=== PATIENT | male | born 2000 | race Two or more races ===

== ENCOUNTER 2024-04-13 22:45 | Emergency (ER) | payer MEDICAID, SELFPAY ==
[2024-04-13 23:22] VITALS: BMI 23.3
[2024-04-13 23:23] VITALS: BP 166/54; PULSE 103; RESP 18; TEMP 36.8; O2SAT 95
--- NOTE | 2024-04-13 23:32 | XR_ITS ---
Examination: Hand, right 2 views Technique: Hand AP, lateral 2 views Date and time of exam: April 13, 2024 11:33 PM Indications: Injury to the hand today, hand pain Findings: Severe osteopenia No acute fracture No dislocation Impression: No acute fracture Given the severe osteopenia, suggest short-term follow-up as clinically warranted
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
[2024-04-14] MEDS: IBUPROFEN TAB 400 MG TABLET 800 MG PO (00:35)
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
--- NOTE | 2024-04-14 00:35 | XR_ITS ---
Examination: Right hand 2 views Technique one AP lateral right hand 2 views Exam date and time: April 14, 2024 0119 hrs. Indications: Injury to the hand today, hand pain Findings: Severe osteopenia The fingers are not spread on the lateral view No gross fracture Impression: Limited study No gross fracture Repeat this study short-term as clinically warranted
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
[2024-04-14 01:29] VITALS: BP 137/78; PULSE 89; RESP 16; TEMP 37; O2SAT 98
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
--- NOTE | 2024-04-14 01:39 | PRELIM_ITS ---
CT scan of the chest, abdomen and pelvis without intravenous contrast (axial sections with sagittal a nd coronal reformats) April 14, 2024 0058 hoursClinical History: TraumaNo prior study is available for comparison. Findings:The lungs are clear. There is no pleural effusion or pneumothorax. The aort a is unremarkable on this noncontrast study. There is no mediastinal collection. There is no pericard ial effusion.The liver, gallbladder, spleen, pancreas, adrenals and kidneys are unremarkable on this noncontrast study.The bowel is unremarkable.A moderate amount of fecal material is present in the col on. The urinary bladder is unremarkable. There is no free fluid or free air.No fracture is identified .Impression:No visceral or bony injury to the chest, abdomen or pelvis. Report Electronically Signed By: Jeovanny Alexandra 04/14/2024 1:38:17 AM [EST]
[2024-04-14 02:50] VITALS: BP 136/88; PULSE 88; RESP 18; TEMP 36.8; O2SAT 100
== END 2024-04-14 02:52 ==
PROVIDERS: Emergency Provider Emergency Medicine
DX: Z02.89 Encounter for other administrative examinations (principal); S69.91XA Unspecified injury of right wrist, hand and finger(s), initial encounter; S09.93XA Unspecified injury of face, initial encounter; S19.9XXA Unspecified injury of neck, initial encounter; S09.90XA Unspecified injury of head, initial encounter; R10.9 Unspecified abdominal pain; R07.9 Chest pain, unspecified; Y08.89XA Assault by other specified means, initial encounter
CPT/HCPCS: 70450; 70486; 71250; 72125; 73120; 74176; 99284; A9270